=== PATIENT | female | born 1980 | race Caucasian/White ===

== ENCOUNTER 2021-07-10 03:20 | Emergency (ER) | payer OTHER ==
[~2021-07-10 03:20] MED LIST: BENTYL 20MG TAB20 MG PO; CITRATE OF MAG296 ML PO
[2021-07-10 04:07] LABS: HEMOGLOBIN 13.7 gm/dl (12.3-15.3); RED BLOOD COUNT 4.71 M/UL (4.00-5.10); WHITE BLOOD COUNT 12.2 K/UL (4.5-11.0)
[2021-07-10 04:29] LABS: BUN/CREATININE RATIO 21 (0-10)
[2021-07-10] MEDS ORDERED: ATIVAN0.5 MG PO (06:11)
[2021-07-10] MEDS ORDERED: OXYCODONE HCL10 MG PO (06:11)
[2021-07-10] MEDS ORDERED: [UNRECOGNIZED DRUG - REMARK] (06:22)
[2021-07-10] MEDS ORDERED: MIRALAX 119 GR119 GM GT (07:04)
[2021-07-12 05:12] LABS: HBSAG SCREEN Negative (Negative); HEP A AB, IGM Negative (Negative); HEP B CORE AB, IGM Negative (Negative); HEP C VIRUS AB >11.0 (0.0-0.9)
== END 2021-07-10 07:10 | disposition home or self-care (01) ==
LOC: ER1 03:20
PROVIDERS: Family Medicine
DX: K75.9 Inflammatory liver disease, unspecified (principal); Z86.59 Personal history of other mental and behavioral disorders
CPT/HCPCS: 80053; 80074; 80307; 83690; 85025; 85610; 96374; 96375; 96376; 99284; J1885; J2060; J2270; J2405; Q9967

== ENCOUNTER → 2021-08-03 | Outpatient (CLI) | payer OTHER ==
[~2021-08-03] MED LIST changes: +ATIVAN0.5 MG PO; +MIRALAX 119 GR119 GM GT; +OXYCODONE HCL10 MG PO; +[UNRECOGNIZED DRUG - REMARK]
[2021-08-03 15:50] LABS: HEMOGLOBIN 13.6 gm/dl (12.3-15.3); RED BLOOD COUNT 4.64 M/UL (4.00-5.10); WHITE BLOOD COUNT 12.9 K/UL (4.5-11.0)
[2021-08-03 16:17] LABS: BUN/CREATININE RATIO 16 (0-10)
[2021-08-04 08:19] LABS: HIV AB/P24 AG SCREEN Non Reactive (Non Reactive)
[2021-08-04 17:14] LABS: TREPONEMA PALLIDUM ANTIBODIES Non Reactive (Non Reactive)
[2021-08-05 15:12] LABS: CHOLESTEROL, TOTAL 160 mg/dL (100-199); HDL SIZE 9.1 nm (>=9.2); HDL-C 48 mg/dL (>39); HDL-P (TOTAL) 32.2 umol/L (>=30.5); LARGE HDL-P 6.7 umol/L (>=4.8); LARGE VLDL-P 2.2 nmol/L (<=2.7); LDL SIZE 21.1 nm (>20.5); LDL SIZE 21.1 nm (>=20.8); LDL-C 90 mg/dL (0-99); LDL-P 1149 nmol/L (<1000); LP-IR SCORE 40 (<=45); SMALL LDL-P 544 nmol/L (<=527); TRIGLYCERIDES 126 mg/dL (0-149); VLDL SIZE 44.5 nm (<=46.6)
[2021-08-05 20:13] LABS: HBSAG SCREEN Negative (Negative); HCV AB >11.0 (0.0-0.9); HEP A AB, IGM Negative (Negative); HEP B CORE AB, IGM Negative (Negative); HEPATITIS C QUANTITATION HCV Not Detected IU/mL (.)
== END ==
LOC: LAB 14:40
PROVIDERS: Nurse Practitioner
DX: Z13.1 Encounter for screening for diabetes mellitus (principal); F11.90 Opioid use, unspecified, uncomplicated; F19.90 Other psychoactive substance use, unspecified, uncomplicated; Z91.89 Other specified personal risk factors, not elsewhere classified
CPT/HCPCS: 36415; 80053; 80061; 80074; 83036; 83704; 84443; 84702; 84703; 85025; 86780; 87389